=== PATIENT | female | born 1970 | race Caucasian/White ===

== ENCOUNTER → 2020-09-16 | Outpatient (CLI) | payer OTHER ==
[~2020-09-16] MED LIST: IOHEXOL 240 MG/ML 50ML VIAL. ONE; IOHEXOL 240 MG/ML 50ML VIAL. PO ONE; IOHEXOL 300 MG/ML 75 ML VIAL. IV ONE
--- NOTE | 2020-09-16 15:57 | RAD ---
CT ABDOMEN+PELVIS W History: Reason: RT SIDED PAIN, BLOATING, DIARRHEA / Spl. Instructions: STARTED DRINKING AT 220PM / H istory: Comparison: None. Technique: After administration of intravenous contrast, helical CT of the abdomen and pelvis was per formed from the lung bases through the ischial tuberosities. Coronal and sagittal reconstructions wer e obtained. 75 mL of Isovue-370 were used. One or more of the following dose reduction techniques wer e utilized: Automated exposure control (AEC), Adjustment of mA and/or kV according to patient size, U se of iterative reconstruction technique such as ASiR, CT scan done according to ALARA and image gent ly/image wisely Abdomen Findings: The visualized lung bases are clear. The liver, gallbladder, pancreas, spleen, and bilateral adrenal glands are normal. Symmetric renal enhancement. There is no focal renal mass. There is no hydronephrosis. The visualized loops of small bowel are normal. The visualized loops of large bowel are normal. There is no evidence of bowel obstruction. Appendix is normal. There is no free fluid. There is no mesenteric or retroperitoneal adenopathy. The abdominal aorta is normal in caliber. Pelvis Findings: Urinary bladder is normal. Retroflexed uterus. No pelvic free fluid. There is no pelvic or inguinal a denopathy. There is no acute bony abnormality. IMPRESSION: No acute findings Electronically signed by: Butch James MD (09/16/2020 3:54 PM) [facility]
== END ==
LOC: DXRAD 14:03
PROVIDERS: ATTEND Clinical Nurse Specialist Family Health
DX: R10.9 Unspecified abdominal pain (principal); R19.7 Diarrhea, unspecified; R14.0 Abdominal distension (gaseous)
CPT/HCPCS: 74177; Q9967

== ENCOUNTER 2021-05-12 16:55 | Emergency (ER) | payer OTHER ==
[~2021-05-12] VITALS: Ht 188 cm; Wt 87.4 kg
--- NOTE | 2021-05-12 17:24 | PHYS DOC ---
Past History Past Medical History: Kidney Stones (TYRELL ABBOTT MD) Past Surgical History: Cholecystectomy, Hysterectomy (TYRELL ABBOTT MD) General Adult EDM: Chief Complaint: FLANK PAIN HPI: HPI: 51-year-old female presents with bilateral flank pain. This pain started 3 days ago and has increased in intensity each day. She describes it as a cramping "bruised" feeling. She denies falls or trauma. No history of kidney stones. She has had normal bowel movements and no change in her urinary habits. She has normal appetite. She did have her gallbladder removed 1-1/2 weeks ago. She denies fever or chills. (NAPOLEON RAMOS DO) Review of Systems: Review of Systems: Constitutional: Denies fever or chills Eyes: Denies change in visual acuity HENT: Denies nasal congestion or sore throat Respiratory: Denies cough or shortness of breath Cardiovascular: Denies chest pain or edema GI: Denies abdominal pain, nausea, vomiting, bloody stools or diarrhea : Denies dysuria Musculoskeletal: Bilateral flank pain Integument: Denies rash Neurologic: Denies headache, focal weakness or sensory changes Endocrine: Denies polyuria or polydipsia Lymphatic: Denies swollen glands Psychiatric: Denies depression or anxiety (NAPOLEON RAMOS DO) Current Medications: Current Meds: Current Medications Medications (Trade) Dose Ordered Sig/Tiffani Start Time Stop Time Status Last Admin Dose Admin Sodium Chloride 1,000 ml @ 1,000 mls/hr 1X ONCE 05/12/21 17:30 05/12/21 18:29 UNV (NAPOLEON RAMOS DO) Allergies: Allergies: Allergies Coded Allergies Type Severity Reaction Last Updated Verified No Known Drug Allergies 09/16/20 No (NAPOLEON RAMOS DO) Physical Exam: PE: Constitutional: Well developed, well nourished, no acute distress, non-toxic appearance. [] HENT: Normocephalic, atraumatic, bilateral external ears normal, oropharynx moist, no oral exudates, nose normal. [] Eyes: PERRLA, EOMI, conjunctiva normal, no discharge. [] Neck: Normal range of motion, no tenderness, supple, no stridor. [] Cardiovascular:Heart rate regular rhythm, no murmur [] Lungs & Thorax: Bilateral breath sounds clear to auscultation [] Abdomen: Bowel sounds normal, soft, mild epigastric tenderness, no masses, no pulsatile masses. [] Skin: Appropriately healing surgical sites from cholecystectomy. [] Back: No tenderness, left CVA tenderness. [] Extremities: No tenderness, no cyanosis, no clubbing, ROM intact, no edema. [] Neurologic: Alert and oriented X 3, normal motor function, normal sensory function, no focal deficits noted. [] Psychologic: Affect normal, judgement normal, mood normal. [] (NAPOLEON RAMOS DO) Current Patient Data: Labs: Note it has been almost 24hrs. and labs have not cross over to chart.-My review of labs shows normal CBC normal electrolytes does have findings of hematuria. (TYRELL ABBOTT MD) EKG: EKG: [] (NAPOLEON RAMOS DO) Radiology/Procedures: Radiology/Procedures: [] (NAPOLEON RAMOS DO) Radiology/Procedures: [place] [address] IMAGING REPORT Signed PATIENT: NUNO GOETZ ACCOUNT: [id number] : 1970 LOCATION: ER AGE: 51 SEX: F EXAM STATUS: REG ER ORD. PHYSICIAN: NAPOLEON RAMOS DO REASON: BILATERAL FLANK RADIATING TO RIGHT AND LEFT LOWER QUAD ABD PROCEDURE: CT ABDOMEN PELVIS WO CONTRAST Exam: CT of abdomen and pelvis without contrast INDICATION: Bilateral flank pain radiating to right left lower quadrant TECHNIQUE: Sequential axial images through the abdomen and pelvis obtained without IV contrast. Sagittal and coronal reformatted images were reconstructed from the axial data and reviewed. Exposure: One or more of the following in the visualized dose reduction techniques were utilized for this examination: 1. Automated exposure control 2. Adjustment of the MA and/or KV according to patient size 3. Use of iterative of reconstructive technique Comparisons: 09/16/2020 FINDINGS: Heart size is normal. No pericardial effusion. Visualized lung bases are clear. No pleural effusion. Evaluation of the solid organs is limited secondary to noncontrast technique. Liver, spleen, pancreas, and adrenals are unremarkable. Gallbladder is difficult to visualize may be contracted. No perinephric inflammation or hydronephrosis. Nonobstructing 2 mm calculus at the mid left kidney. Bladder is partially distended and not well evaluated. Uterus is absent. No abnormal adnexal mass. Few scattered diverticula noted sigmoid colon without evidence of acute diverticulitis. Appendix is not identified. No free intra-abdominal air or fluid. No obstruction. Abdominal aorta has a normal course and caliber. No enlarged abdominal lymph nodes are identified. No suspicious osseous or acute fractures. IMPRESSION: 1. No acute process identified in the abdomen or pelvis. 2. Nonobstructing left renal calculus. No history obstructive uropathy. Electronically signed by: Anton Last MD (05/12/2021 6:06 PM) [facility] DICTATED AND SIGNED BY: ANTON LAST MD DATE: 05/12/211756 CC: NAPOLEON RAMOS DO; MALLORY SIMONS APRN ~MTH0 0 (TYRELL ABBOTT MD) Heart Score: C/O Chest Pain: N/A Risk Factors: Risk Factors: DM, Current or recent (<one month) smoker, HTN, HLP, family history of CAD, obesity. Risk Scores: Score 0 - 3: 2.5% MACE over next 6 weeks - Discharge Home Score 4 - 6: 20.3% MACE over next 6 weeks - Admit for Clinical Observation Score 7 - 10: 72.7% MACE over next 6 weeks - Early Invasive Strategies (NAPOLEON RAMOS DO) Course & Med Decision Making: Course & Med Decision Making Pertinent Labs and Imaging studies reviewed. (See chart for details) The patient's work-up is pending at this time. I am signing the patient out to Dr. Abbott at 1800. He will determine the patient's final disposition and treatment plan. [] (NAPOLEON RAMOS DO) Course & Med Decision Making See Dr. Ramos note for ED hx prior to 1800 Hrs. Pt currently rating pain as 6/10 , Lt flank. Some nausea. steam bone press tender but lower on Lt. with percussion. Still awaiting UA results 0630 hrs. ??? Will give Toradol. 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 Patient push fluids. Will start patient on Flomax. Marked pain take Vicoprofen. To follow-up current urine results with primary. Obtain referral to urology. Impression: 1. Renal colic 2. Non-Obstructive Kidney stones on Lt. (TYRELL ABBOTT MD) Dragon Disclaimer: Dragon Disclaimer: This electronic medical record was generated, in whole or in part, using a voice recognition dictation system. (NAPOLEON RAMOS DO) Departure Departure: Impression: Primary Impression: Flank pain Referrals: MALLORY SIMONS APRN (PCP) Scripts Hydrocodone/Ibuprofen (HYDROCODONE-IBUPROFEN 7.5-200 ) 1 Each Tablet 1 TAB PO PRN Q6HRS PRN for PAIN, #30 TAB 0 Refills Prov: TYRELL ABBOTT MD 05/12/21 Ondansetron Hcl (ZOFRAN) 4 Mg Tablet 8 MG PO QIDPRN PRN for NAUSEA/VOMITING, #30 TAB Prov: TYRELL ABBOTT MD 05/12/21 Tamsulosin Hcl (FLOMAX) 0.4 Mg Cap.er.24h 0.4 MG PO DAILY for renal colic, #30 CAP.SR Prov: TYRELL ABBOTT MD 05/12/21 Dragon Disclaimer This chart was dictated in whole or in part using Voice Recognition software in a busy, high-work load, and often noisy Emergency Department environment. It may contain unintended and wholly unrecognized errors or omissions. (TYRELL ABBOTT MD) NAPOLEON RAMOS DO May 12, 2021 17:24 TYRELL ABBOTT MD May 12, 2021 18:15
[2021-05-12] MEDS ORDERED: IV NORMAL SALINE 1,000ML 1,000 ML IV ONE (17:30)
[2021-05-12 18:03] LABS: BASO # 0.1 x10^3/uL (0.0-0.2); BASO % 2 % (0-3); EOS # 0.2 x10^3/uL (0.0-0.7); EOS % 4 % (0-3); HEMATOCRIT 40.4 % (36.0-47.0); HEMOGLOBIN 13.5 g/dL (12.0-15.5); LYMPH # 1.3 x10^3/uL (1.0-4.8); LYMPH % 27 % (24-48); MEAN CORPUSCULAR HEMOGLOBIN 31 pg (25-35); MEAN CORPUSCULAR HGB CONC 34 g/dL (31-37); MEAN CORPUSCULAR VOLUME 92 fL (79-100); MONO # 0.5 x10^3/uL (0.0-1.1); MONO % 10 % (0-9); NEUT # 2.8 x10^3uL (1.8-7.7); NEUT % 58 % (31-73); PLATELET COUNT 349 x10^3/uL (140-400); RED BLOOD COUNT 4.42 x10^6/uL (3.50-5.40); RED CELL DISTRIBUTION WIDTH 12.7 % (11.5-14.5); WHITE BLOOD COUNT 4.8 x10^3/uL (4.0-11.0)
--- NOTE | 2021-05-12 18:08 | RAD ---
Exam: CT of abdomen and pelvis without contrast INDICATION: Bilateral flank pain radiating to right left lower quadrant TECHNIQUE: Sequential axial images through the abdomen and pelvis obtained without IV contrast. Sagit kayleigh and coronal reformatted images were reconstructed from the axial data and reviewed. Exposure: One or more of the following in the visualized dose reduction techniques were utilized for this examination: 1. Automated exposure control 2. Adjustment of the MA and/or KV according to patient size 3. Use of iterative of reconstructive technique Comparisons: 09/16/2020 FINDINGS: Heart size is normal. No pericardial effusion. Visualized lung bases are clear. No pleural effusion. Evaluation of the solid organs is limited secondary to noncontrast technique. Liver, spleen, pancreas, and adrenals are unremarkable. Gallbladder is difficult to visualize may be contracted. No perinephric inflammation or hydronephrosis. Nonobstructing 2 mm calculus at the mid left kidney. Bladder is partially distended and not well evaluated. Uterus is absent. No abnormal adnexal mass. Few scattered diverticula noted sigmoid colon without evidence of acute diverticulitis. Appendix is n ot identified. No free intra-abdominal air or fluid. No obstruction. Abdominal aorta has a normal course and caliber. No enlarged abdominal lymph nodes are identified. No suspicious osseous or acute fractures. IMPRESSION: 1. No acute process identified in the abdomen or pelvis. 2. Nonobstructing left renal calculus. No history obstructive uropathy. Electronically signed by: Anton Jarvis MD (05/12/2021 6:06 PM) [facility]
[2021-05-12 18:13] LABS: CALCIUM 8.9 mg/dL (8.5-10.1); CREATININE 0.8 mg/dL (0.6-1.0); GFR 75.9; POTASSIUM 3.6 mmol/L (3.5-5.1)
[2021-05-12 18:23] LABS: ALBUMIN 3.4 g/dL (3.4-5.0); ALBUMIN/GLOBULIN RATIO 0.9 (1.0-1.7); TOTAL BILIRUBIN 0.3 mg/dL (0.2-1.0); TOTAL PROTEIN 7.1 g/dL (6.4-8.2)
[2021-05-12] MEDS ORDERED: KETOROLAC 30 MG/ML VIAL. IVP ONE (18:30)
[2021-05-12] MEDS ORDERED: ONDANSETRON PF 4 MG/2 ML VIAL. IVP ONE (18:30)
[2021-05-12 18:46] LABS: BILIRUBIN,URINE NEG (NEG); CLARITY,URINE HAZY; COLOR,URINE YELLOW; GLUCOSE,URINE NEG (NEG); NITRITE,URINE NEG (NEG); UROBILINOGEN,URINE 0.2 mg/dL (0.2 mg/dL)
[2021-05-12 18:47] LABS: BACTERIA,URINE FEW /HPF (0-FEW); HYALINE CASTS, URINE FEW /HPF; RBC,URINE OCC /HPF (0-2); SQUAMOUS EPITHELIAL CELL,UR FEW /LPF; WBC,URINE OCC /HPF (0-4)
[2021-05-12] MEDS ORDERED: ONDA4TAB7 PO (20:23)
[2021-05-12] MEDS ORDERED: TAMS0.4C97 PO (20:23)
[2021-05-12] MEDS ORDERED: HYDR-1179 PO (20:23)
[2021-05-12] MEDS ORDERED: TAMSULOSIN 0.4 MG CAP.ER.24H. PO ONE (20:30)
[2021-05-12 20:41] VITALS: BP 115/65
== END 2021-05-12 20:54 | disposition home or self-care (01) ==
LOC: ER 16:55
DX: N23 Unspecified renal colic (principal); Z87.442 Personal history of urinary calculi; Z90.49 Acquired absence of other specified parts of digestive tract; Z90.710 Acquired absence of both cervix and uterus
CPT/HCPCS: 36415; 74176; 80053; 81001; 85025; 96361; 96374; 96375; 99285; J1885; J2405; J7030

== ENCOUNTER 2021-06-06 14:46 | Emergency (ER) | payer OTHER ==
[~2021-06-06] VITALS: Ht 188 cm; Wt 87.4 kg
[~2021-06-06 14:46] MED LIST changes: +HYDR-1179 PO; -IOHEXOL 240 MG/ML 50ML VIAL. ONE; -IOHEXOL 240 MG/ML 50ML VIAL. PO ONE; -IOHEXOL 300 MG/ML 75 ML VIAL. IV ONE; +ONDA4TAB7 PO; +TAMS0.4C97 PO
--- NOTE | 2021-06-06 15:20 | PHYS DOC ---
Past History Past Medical History: Kidney Stones Additional Past Medical Histor: SEASONAL ALLERGIES Past Surgical History: Cholecystectomy, Hysterectomy Additional Past Surgical Histo: HEMORRHOIDECTOMY Alcohol Use: None General Adult EDM: Chief Complaint: HEADACHE HPI: HPI: Patient is a 51-year-old female who presents to the emergency department for a headache. Patient reports she has a history of migraines and takes sumatriptan A. She is reporting a generalized headache that is behind her eyes. She rates it 10 out of 10. She also reports nausea and photophobia, and phonophobia. This is not the worst headache of her life. She states that this feels like her typical migraine headaches. Negative for thunderclap headache. She denies fever, visual rigidity, vomiting. Review of Systems: Review of Systems: 14 body systems of the review of systems have been reviewed. See HPI for pertinent positive and negative responses, otherwise all other systems are negative, nonpertinent or noncontributory Allergies: Allergies: Allergies Coded Allergies Type Severity Reaction Last Updated Verified No Known Drug Allergies 09/16/20 No Physical Exam: PE: Constitutional: Well developed, well nourished, no acute distress, non-toxic appearance. [] HENT: Normocephalic, atraumatic, bilateral external ears normal, oropharynx moist, no oral exudates, nose normal. [] Eyes: PERRL, EOMI, conjunctiva normal, no discharge. [] Neck: Normal range of motion, no tenderness, supple, no stridor. [] Cardiovascular:Heart rate regular rhythm, no murmur [] Lungs & Thorax: Bilateral breath sounds clear to auscultation [] Abdomen: Bowel sounds normal, soft, no tenderness, no masses, no pulsatile darien s. [] Skin: Warm, dry, no erythema, no rash. [] Back: No tenderness, normal range of motion Extremities: No tenderness, no cyanosis, no clubbing, ROM intact, no edema. [] Neurologic: Alert and oriented X 3, normal motor function, normal sensory function, no focal deficits noted. [] Psychologic: Affect normal, judgement normal, mood normal. [] Current Patient Data: Vital Signs: Vital Signs Date Time Temp Pulse Resp B/P (MAP) Pulse Ox O2 Delivery O2 Flow Rate FiO2 06/06/21 14:55 97.3 78 18 154/88 (110) 98 Room Air EKG: EKG: [] Radiology/Procedures: Radiology/Procedures: [] Heart Score: C/O Chest Pain: N/A Risk Factors: Risk Factors: DM, Current or recent (<one month) smoker, HTN, HLP, family history of CAD, obesity. Risk Scores: Score 0 - 3: 2.5% MACE over next 6 weeks - Discharge Home Score 4 - 6: 20.3% MACE over next 6 weeks - Admit for Clinical Observation Score 7 - 10: 72.7% MACE over next 6 weeks - Early Invasive Strategies Course & Med Decision Making: Course & Med Decision Making Pertinent Labs and Imaging studies reviewed. (See chart for details) []Patient is a 51-year-old female who presents to the emergency department for a headache. Patient reports she has a history of migraines and takes sumatriptan A. She is reporting a generalized headache that is behind her eyes. She rates it 10 out of 10. She also reports nausea and photophobia, and phonophobia. This is not the worst headache of her life. She states that this feels like her typical migraine headaches. Negative for thunderclap headache. She denies fever, visual rigidity, vomiting. Patient treated with migraine cocktail. She reports improvement in her symptoms following treatment. Patient advised to follow-up with her primary care provider. I discussed with patient all findings and diagnostic testing as well as the need to follow-up with PCP for further evaluation and treatment or return to the ER if any new or worsening symptoms. Strict return precautions were also discussed at length. Patient voiced understanding and agreement with the plan. Patient is hemodynamically stable at the time of disposition. Amanda Disclaimer: Amanda Disclaimer: This electronic medical record was generated, in whole or in part, using a voice recognition dictation system. Departure Departure: Impression: Primary Impression: Migraine Qualified Codes: G43.909 - Migraine, unspecified, not intractable, without status migrainosus Disposition: HOME / SELF CARE / HOMELESS Condition: GOOD Referrals: MALLORY SIMONS APRN (PCP) Patient Instructions: Migraine Headache Additional Instructions: You were seen in the emergency department for a headache which is most likely a migraine. You were given a migraine cocktail which includes Toradol, Compazine, and Benadryl which resolved the headache. Fluids were also given to help with dehydration which is commonly a cause of headache. Take your sumatriptan as prescribed. Try to hydrate at home with water and other fluids and eat normal diet. Please return to the emergency department if you have any vomiting, fever, increased pain that is refractory to treatments at home, vision changes, changes in behavior or mental status, or any focal neurological symptoms including weakness or numbness in the limbs. It is important to follow-up with your doctor tomorrow regarding your ER visit for reexamination. EMERGENCY DEPARTMENT GENERAL DISCHARGE INSTRUCTIONS Thank you for coming to [facility] (ED) today and trusting us with you care. We trust that you had a positivie experience in our Emergency Department. If you wish to speak to the department management, you may call the director at [phone]. YOUR FOLLOW UP INSTRUCTIONS ARE FOLLOWS: 1. Do you have a private Doctor? If you do not have a private doctor, please ask for a resource list of physicians or clinics that may be able to assist you with follow up care. 2. The Emergency Physician has interpreted your x-rays. The X-Ray specialist will also review them. If there is a change in the findings, you will be notified in 48 hours when at all possible. 3. A lab test or culture has been done, your results will be reviewed and you will be notified if you need a change in treatment. ADDITIONAL INSTRUCTIONS AND INFORMATION: 1. Your care today has been supervised by a physician who is specially trained in emergency care. Many problems require more than one evaluation for a complete diagnosis and treatment. We recommend that you schedule your follow up appointment as recommended to ensure complete treatment of you illness or injury. If you are unable to obtain follow up care and continue to have a problem, or if your condition worsens, we recommend that you return to the ED. 2. We are not able to safely determine your condition over the phone nor are we able to give sound medical advice over the phone. For these safety reasons, if you call for medical advice we will ask you to come to the ED for further evaluation. 3. If you have any questions regarding these discharge instructions please call the ED at [phone]. SAFETY INFORMATION: In the interest of safety, wellness, and injury prevention; we encourage you to wear your sealbelt, if you smoke; quite smoking, and we encourage family to use a protective helmet for bicycling and other sporting events that present an increased risk for head injury. IF YOUR SYMPTOMS WORSEN OR NEW SYMPTOMS DEVELOP, OR YOU HAVE CONCERNS ABOUT YOUR CONDITION; OR IF YOUR CONDITION WORSENS WHILE YOU ARE WAITING FOR YOUR FOLLOW UP APPOI NTMENT; EITHER CONTACT YOUR PRIMARY CARE DOCTOR, THE PHYSICIAN WHOSE NAME AND NUMBER YOU WERE GIVEN, OR RETURN TO THE ED IMMEDIATELY. MICHAEL DURBIN APRN Jun 06, 2021 15:20
[2021-06-06] MEDS ORDERED: diphenhydrAMINE 50 MG/ML VIAL IVP ONE (15:30)
[2021-06-06] MEDS ORDERED: PROCHLORPERAZINE 10 MG/2 ML VIAL. IV ONE (15:30)
[2021-06-06] MEDS ORDERED: IV NORMAL SALINE 1,000ML 1,000 ML IV ONE (15:30)
[2021-06-06] MEDS ORDERED: KETOROLAC 30 MG/ML VIAL. IVP ONE (15:30)
[2021-06-06 16:30] VITALS: BP 131/92
== END 2021-06-06 16:30 | disposition home or self-care (01) ==
LOC: ER 14:46
DX: G43.909 Migraine, unspecified, not intractable, without status migrainosus (principal); Z90.49 Acquired absence of other specified parts of digestive tract; Z90.710 Acquired absence of both cervix and uterus; Z87.442 Personal history of urinary calculi
CPT/HCPCS: 96361; 96374; 96375; 99284; J0780; J1200; J1885; J7030